=== PATIENT | female | born 1990 | race Caucasian/White ===

== ENCOUNTER → 2016-05-28 | Outpatient (CLI) | payer OTHER ==
[~2016-05-28] MED LIST: BCPILLS PO; PRENTAB26 PO; RTL20 PO
== END | disposition home or self-care (01) ==
LOC: C.PAPS 13:37
PROVIDERS: ATTEND Obstetrics & Gynecology
DX: Z01.419 Encounter for gynecological examination (general) (routine) without abnormal findings (principal)

== ENCOUNTER → 2017-07-15 | Outpatient (CLI) | payer OTHER | END | disposition home or self-care (01) | LOC: C.LABPVFM 07:40 | PROVIDERS: ATTEND Obstetrics & Gynecology | DX: E28.2 Polycystic ovarian syndrome (principal) ==

== ENCOUNTER → 2017-08-04 | Outpatient (CLI) | payer OTHER ==
[2017-08-05 06:41] LABS: HEMOGLOBIN A1C 5.1 % (4.5-5.6)
== END | disposition home or self-care (01) ==
LOC: C.LABPVFM 14:41
PROVIDERS: ATTEND Nurse Practitioner Family
DX: R73.01 Impaired fasting glucose (principal); R53.83 Other fatigue

== ENCOUNTER → 2017-12-08 | Outpatient (CLI) | payer OTHER ==
[~2017-12-08] MED LIST changes: -BCPILLS PO; +BUSP-8 PO; +CITA20TA9 PO; -PRENTAB26 PO; -RTL20 PO
[2017-12-08 14:00] LABS: BLOOD UREA NITROGEN 6 mg/dl (7-18); CALCIUM 8.8 mg/dl (8.5-10.1); CARBON DIOXIDE 23 mmol/L (21-32); CREATININE 0.93 mg/dl (0.60-1.20); GLUCOSE 101 mg/dl (70-99); SODIUM 139 mmol/L (136-145)
== END | disposition home or self-care (01) ==
LOC: C.LABPVFM 09:04
PROVIDERS: ATTEND Nurse Practitioner Family
DX: R53.83 Other fatigue (principal); R51 Headache; E87.6 Hypokalemia; R11.0 Nausea

== ENCOUNTER 2025-04-04 12:12 | Observation (INO) ==
--- NOTE | 2025-04-04 12:54 | Emergency Department Note ---
Impression & Plan Gastroenteritis, Enterovirus infection, Intractable vomiting, Hypokalemia ED Provider Note NAME: ROSITA WAGGONER AGE: 34 SEX: F : 1990 ARRIVES VIA: Ambulance INFORMANT: The patient herself and her mother. ED PROVIDER(S): Sakina Martinez PA-C, [Santana Trevino MD] CHIEF COMPLAINT: Illness, dehydration HISTORY OF PRESENTING ILLNESS: The patient is a 34-year-old female who presents to the emergency department via EMS from her primary care provider's office in a wheelchair reporting GI virus for 6 days. Her symptoms began Wednesday with nausea, vomiting, and watery diarrhea. 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 She reports intermittent fever and not being able to keep anything down since then. She was seen here in the ER 2 days ago and diagnosed with enterovirus. Since then she has still had episodes of vomiting and diarrhea. She is not able to eat or drink. She had a primary care appointment today and was referred here for admission for rehydration and management of her symptoms. Primary care provider reports patient is tachycardic, diaphoretic, and crying. She has not been able to eat anything for many days. The patient was given Zofran via EMS upon arrival. Patient denies chest pain, shortness of breath, cough, recent travel, or eating anything out of the ordinary. REVIEW OF SYSTEMS: See HPI for pertinent positives and pertinent negatives. ALLERGIES: Latex, ciprofloxacin, quinolones MEDICATIONS: See below PAST MEDICAL HISTORY: See below PHYSICAL EXAM: VITALS: Vitals are noted on the nurses note and reviewed by myself. Vital signs stable. GENERAL: 34-year-old female, in no acute distress, nondiaphoretic, well- developed well-nourished. SKIN: Capillary refill less than 2 seconds. No rash. HEENT: Normocephalic. PERRLA. EOMI. Nares patent. Mucous membranes moist. Neck is supple without nuchal rigidity. HEART: Regular rate and rhythm without murmurs gallops or rubs. LUNGS: CTA BL without wheezes, rales or rhonchi. No retractions or accessory muscle use. ABDOMEN: Positive BS x 4. Soft, diffuse abdominal tenderness, without masses or organomegaly. No guarding or rebound tenderness. MUSCULOSKELETAL: No gross musculoskeletal defects. NEURO: Patient was alert and oriented to person place and time. No focal neurological deficits. DIFFERENTIAL DIAGNOSIS: Gastroenteritis, foodborne illness, viral infection, appendicitis, dehydration, small bowel obstruction, pancreatitis, kidney stone, electrolyte abnormality, dehydration, among others. ED COURSE AND MEDICAL DECISION MAKING: MEDICATIONS GIVEN: 1 L normal saline, Tylenol 1000 mg IV, Zofran 4 mg IV, potassium 10 meq 10, potassium chloride 2 bags IV, Reglan 10 mg IV INTERPRETATION OF LABS: I interpreted the labs with full lab results as below in the labsection of this note. Pertinent lab results discussed in the MDM section below. INTERPRETATION OF IMAGING: I informally interpreted the patient's CT abdomen and pelvis which does not show evidence of obvious bowel obstruction, nephrolithiasis, or acute cholecystitis and reviewed the formal report below. CONSULTATION: On-call hospitalist - Presented the patient to the provider. Patient is still having episodes of vomiting with Zofran and Reglan. Hypokalemia treated here in the ER. She was not able to provide a stool sample. Patient's symptoms have not improved. I do believe she would benefit from admission. They agreed to evaluate the patient for admission and further management. MDM SUMMARY: I evaluated the 34-year-old female who presents to the emergency department due to enterovirus and possible GI virus referred by PCP for intractable vomiting and dehydration. See HPI and PE above. Patient symptoms have been persistent for 6 days. Initially tachycardic with a rate of 110. She is afebrile. Initially 1 L normal saline, Tylenol, and Zofran given for symptom management. Labs obtained showing no leukocytosis. Hemodynamically stable. Hypokalemia 3.2. This was repleted. Magnesium 1.8. No other electrolyte abnormality. No SHAHAB. Normal LFTs. Lipase 11. Urinalysis obtained showing 2+ ketones. No blood or concern for infection. Patient was not able to provide a stool sample here in the ER however has had many episodes of watery diarrhea for the past 6 days and GI virus is likely. CT abdomen and pelvis obtained to rule out other causes which shows no acute findings. All laboratory and imaging results reviewed the patient. On reevaluation the patient is still having multiple episodes of vomiting. Reglan was given. I had a long discussion with the patient regarding her symptoms and minimal improvement here in the ER. I do believe she would benefit from admission for hydration and further management. She is agreeable and all questions answered. Consultation with on-call hospitalist can be seen in detail above. They agreed to evaluate the patient for admission. See their note for further management. Patient was admitted in stable condition. DIAGNOSIS: Gastroenteritis, enterovirus infection, intractable vomiting, hypokalemia The chart was completed utilizing [employer] Speech voice recognition software. Grammatical errors, random word insertions, pronoun errors, and incomplete sentences are an occasional consequence of this system due to software limitations, ambient noise, and hardware issues. Any formal questions or concerns about the content, text, or information contained within the body of this dictation should be directly addressed to the provider for clarification. TREATMENT PLAN/DISCHARGE INSTRUCTIONS: The patient was admitted to medicine. See their note for further management and workup. 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 Hypertrophy of both inferior nasal turbinates Nasal septal deviation Refractory obstruction of nasal airway Rectal pain Proctitis Hemorrhoids Pilar cyst of scalp Constipation GERD (gastroesophageal reflux disease) ADD (attention deficit disorder) Medical marijuana use Severe anxiety Status post placement of implantable loop recorder Abdominal pain PSVT (paroxysmal supraventricular tachycardia) Raynauds phenomenon Fatigue Arthralgia Myalgia Racing heart beat Dyspnea on exertion Panic attacks Christine infection of genital region Acute dysfunction of eustachian tube Pelvic pain Flank pain Acne (Chronic) Attention deficit hyperactivity disorder (Acute) Classic migraine with aura (Acute) Dyspareunia (Acute) Eczema (Acute) Endometriosis Enlarged tonsils and adenoids (Acute) Impaired fasting glucose (Acute) Insomnia (Acute) Irritable bowel syndrome (Acute) Nevus (Acute) Obesity (Acute) Ovarian cyst (Acute) Parasomnia (Acute) Postcoital bleeding (Acute) Sciatica (Acute) Sleep disturbances (Acute) Sleep walking (Acute) Trigger point of right shoulder region (Acute) Vitamin D deficiency (Acute) Witnessed apneic spells (Acute) Depression Medical History Polycystic ovarian syndrome Hx of fracture of nose x3 "Can only breath out of one side of my nose" History of kidney stones no surgery required Raynauds phenomenon History of PSVT (paroxysmal supraventricular tachycardia) Per 06/2023 EP note- no significant SVT noted since loop recorder implanted Implantable loop recorder present [facility]>implanted d/t syncopal episode and irregular heartbeats Hx of syncope history of in 2020- no recent problems IBS (irritable bowel syndrome) Dyspnea on exertion Globus sensation GERD (gastroesophageal reflux disease) Depression with anxiety Hx of migraines ADHD (attention deficit hyperactivity disorder) ADD (attention deficit disorder) Surgical History History of removal of cyst (06/13/24) excision of multiple (10) pilar cysts of scalp: Dr. Thao [place] teeth removed Adverse effect of anesthesia r/t raynauds - "I get really cooled when getting anesthesia and just ask for extra blankets" as per patient PONV (postoperative nausea and vomiting) History of esophagogastroduodenoscopy (EGD) Hx of colonoscopy Hx of hysterectomy Hx of laparoscopy endometriosis Family History Grandmother (Maternal) Ovarian cancer Colorectal cancer Mother Ovarian cancer Other No family history of adverse response to anesthesia Denies family history of Prostate cancer Myocardial infarction Breast cancer Social History Smoking Status: Never smoker Tobacco Type: Cigarettes Age Started Using Tobacco: 19; Age Quit Using Tobacco: 29; packs per day: 1; Second Hand Exposure: No; Do You Dip or Chew Tobacco: No; Hx Alcohol Use: No Hx Substance Use: Yes (medical marijuana - gummies) Prescribed Medications: Marijuana Last Used Substance: Days (ago) Preferred Language: Brazilian Communication Ability: Effective Visual Impairment: Limited Hearing Ability: Normal Member Services Representative Required: No Beliefs That Will Affect Care: None marital status: Current Living Situation: Parent Current Living Situation Comment: lives "part-time" with parents and "part- time" with boyfriend current occupational status: employed 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 How many Children do You have: 1 Feels Safe at Home: Yes Childhood Exposure to Second-Hand Smoke: No Diet: regular caffeine: Yes during the past year weight has: remained stable Dental Care, Regularly: Yes Physical Activity Frequency: Daily Seatbelt Use: always Sunscreen Use: Yes Do you think of yourself as: straight/heterosexual Sexual Activity: has been sexually active within the last 12 months Gender Identity: Female Assistive Devices: None Allergies Allergies Allergy/AdvReac Type Severity Reaction Status Date / Time latex Allergy Mild Rash Verified 04/04/25 11:01 ciprofloxacin [From Cipro] AdvReac Severe Anaphylaxis Verified 04/04/25 11:01 Quinolones AdvReac Severe Anaphylaxis Verified 04/04/25 11:01 Home Meds Home Medications Medication Instructions Recorded Confirmed fluticasone propionate 50 1 spray intranasal BID PRN 02/11/24 04/04/25 mcg/actuation nasal Allergies spray,suspension (Flonase Allergy Relief) tirzepatide (weight loss) 2.5 2.5 mg subcut WK 04/04/25 04/04/25 mg/0.5 mL subcutaneous pen injector (Zepbound) Previous Rx's Medication Instructions Recorded venlafaxine 75 mg capsule,extended 75 mg PO QAM #90 caps 06/16/24 release 24 hr (Effexor XR) atomoxetine 80 mg capsule 80 mg PO DAILY #90 caps 01/10/25 ondansetron HCl 4 mg tablet 4 mg PO DAILY PRN nausea and 03/13/25 vomiting #30 tabs Results & Data (ED) Vital Signs Vital Signs - 24 hr 04/04/25 17:00 Pulse Rate [Apical] 69 Pulse Rhythm [Apical] Regular Pulse Strength [Apical] Normal Respiratory Rate 18 Respiratory Effort / Characteristics Non-Labored Spontaneous Respiratory Depth Normal Respiratory Pattern Regular Blood Pressure [Right Arm] 124/62 Blood Pressure Mean [Right Arm] 82 Blood Pressure Position [Right Arm] Semi-fowlers Pulse Oximetry 98 Oxygen Delivery Method Room Air Laboratory Data 04/05/25 06:24 04/05/25 06:24 Lab Results 04/04/25 04/04/25 04/04/25 Range/Units 12:58 15:09 15:10 WBC 6.48 (4.8-10.8) K/ul RBC 5.41 H (4.20-5.40) M/uL Hgb 16.3 H (12.0-16.0) g/dL Hct 46.6 (37.0-47.0) % MCV 86.1 (80.0-100.0) fL MCH 30.1 (25.0-34.0) pg MCHC 35.0 (32.0-36.0) g/dL RDW Std Deviation 38.0 (36.4-46.3) fL RDW Coeff of Melanie 12.1 (11.5-14.5) % Plt Count 249 (130-400) K/uL MPV 9.9 (9.4-12.4) fL Immature Gran % (Auto) 0.2 % Neut % (Auto) 58.8 % Lymph % (Auto) 32.1 % [place] % (Auto) 5.4 % Eos % (Auto) 3.2 % Baso % (Auto) 0.3 % Neut # (Auto) 3.81 (1.40-6.50) K/uL Lymph # (Auto) 2.08 (1.20-3.40) K/uL [place] # (Auto) 0.35 (0.11-0.59) K/uL Eos # (Auto) 0.21 (0.00-0.50) K/uL Baso # (Auto) 0.02 (0.00-0.20) K/uL Immature Gran # (Auto) 0.01 (0.01-0.20) K/uL Sodium 140 (136-145) mmol/L Potassium 3.2 L (3.5-5.1) mmol/L Chloride 106 (98-107) mmol/L Carbon Dioxide 25 (21-32) mmol/L Anion Gap 9 (3-11) BUN 4 L (6-23) mg/dl Creatinine 0.72 (0.6-1.2) mg/dl Est Cr Clr Drug Dosing Not Reportable eGFR 113.15 BUN/Creatinine Ratio 5.6 L (10-20) Glucose 78 (70-99(Fasting)) mg/dl Calcium 9.5 (8.6-10.3) mg/dl Magnesium 2.0 (1.7-2.4) mg/dl Total Bilirubin 1.1 H (0.2-1.0) mg/dl AST 36 (13-39) U/L ALT 38 (7-52) U/L Alkaline Phosphatase 47 (34-104) U/L Total Protein 8.0 (6.0-8.3) gm/dl Albumin 4.8 (3.4-5.0) gm/dl Globulin 3.2 (2.5-4.0) gm/dl Albumin/Globulin Ratio 1.5 (0.9-2) Lipase 11 (11-82) U/L Urine Color Yellow Urine Appearance Cloudy A (Clear) Urine pH 6.0 (4.5-7.5) Ur Specific [place] 1.012 (1.000-1.030) Urine Protein Negative (Negative) Urine Glucose (UA) Negative (Negative) Urine Ketones 2+ H (Negative) Urine Blood Negative (Negative) Urine Nitrite Negative (Negative) Urine Bilirubin Negative (Negative) Urine Urobilinogen Negative (Negative) Ur Leukocyte Esterase Negative (Negative) Urine WBC (Auto) 0-5 (0-5) /hpf Urine RBC (Auto) 6-10 H (0-2) /hpf U Hyaline Cast (Auto) 0-2 (0-2) /lpf U Epithel Cells (Auto) 6-10 H (0-2) /hpf Urine Bacteria (Auto) 3+ H (None Seen) POC Ur Test Cancelled Urine Comment Administered Medications Acetaminophen (Acetaminophen 325 Mg Tab) 650 mg PO Q4H PRN PRN Reason: pain/fever Stop: 05/04/25 20:53 Last Admin: 04/05/25 05:22 Dose: 650 mg Documented By: DELONTE Atomoxetine HCl (Atomoxetine Hcl 40 Mg Capsule) 80 mg PO DAILY [facility] Stop: 05/05/25 08:59 Last Admin: 04/05/25 09:05 Dose: 80 mg Documented By: RAMU Sodium Chloride (Nss) 1,000 mls @ 125 mls/hr IV .Q8H JENNIFER Stop: 04/07/25 20:53 Last Admin: 04/05/25 14:13 Dose: 125 mls/hr Documented By: Infusion: 04/05/25 13:19 Dose: Infused Documented By: Admin: 04/05/25 05:19 Dose: 125 mls/hr Documented By: Infusion: 04/05/25 05:06 Dose: Infused Documented By: Admin: 04/04/25 21:06 Dose: 125 mls/hr Documented By: DELONTE Ondansetron HCl (Ondansetron Inj 2 Mg/Ml 2 Ml Vial) 4 mg IV Q6H PRN PRN Reason: Nausea Stop: 05/04/25 20:53 Last Admin: 04/05/25 11:53 Dose: 4 mg Documented By: Admin: 04/05/25 05:22 Dose: 4 mg Documented By: Admin: 04/04/25 22:26 Dose: 4 mg Documented By: DELONTE Venlafaxine HCl (Venlafaxine Hcl Xr 75 Mg Capxr) 75 mg PO QAM JENNIFER Stop: 05/05/25 08:59 Last Admin: 04/05/25 09:05 Dose: 75 mg Documented By: RAMU Discontinued Medications Hydroxyzine HCl (Hydroxyzine Hcl 25 Mg Tab) 25 mg PO NOW STA Stop: 04/04/25 21:47 Last Admin: 04/04/25 22:31 Dose: 25 mg Documented By: DELONTE Sodium Chloride (Nss) 1,000 mls @ 999 mls/hr IV .Q1H1M ONE Stop: 04/04/25 13:47 Last Infusion: 04/04/25 15:40 Dose: Infused Documented By: sabine Admin: 04/04/25 13:07 Dose: 999 mls/hr Documented By: sabine Acetaminophen (Ofirmev) 1,000 mg in 100 mls @ 400 mls/hr IV NOW STA Stop: 04/04/25 13:01 Last Infusion: 04/04/25 13:25 Dose: Infused Documented By: sabine Admin: 04/04/25 13:07 Dose: 400 mls/hr Documented By: sabine Potassium Chloride (K Chao / Wtr) 10 meq in 100 mls @ 100 mls/hr IV ONE ONE Stop: 04/04/25 14:55 Last Infusion: 04/04/25 15:39 Dose: Infused Documented By: sabine Admin: 04/04/25 14:09 Dose: 100 mls/hr Documented By: sabine Magnesium Sulfate/Dextrose (Magnesium Sulfate / D5w) 1 gm in 100 mls @ 50 mls/hr IV ONE ONE Stop: 04/05/25 11:42 Last Infusion: 04/05/25 12:51 Dose: Infused Documented By: Admin: 04/05/25 10:32 Dose: 50 mls/hr Documented By: RAMU Acetaminophen (Ofirmev) 1,000 mg in 100 mls @ 400 mls/hr IV NOW STA Stop: 04/05/25 11:58 Last Infusion: 04/05/25 12:11 Dose: Infused Documented By: Admin: 04/05/25 11:54 Dose: 400 mls/hr Documented By: RAMU Ioversol (Optiray 320 100ml) 90 ml IV ONCE ONE Stop: 04/04/25 15:19 Last Admin: 04/04/25 15:18 Dose: 90 ml Documented By: SARAI Metoclopramide HCl (Metoclopramide Hcl Inj 5 Mg/Ml 2 Ml Vial) 10 mg IV NOW STA Stop: 04/04/25 16:14 Last Admin: 04/04/25 16:34 Dose: 10 mg Documented By: christopher Ondansetron HCl (Ondansetron Inj 2 Mg/Ml 2 Ml Vial) 4 mg IV NOW STA Stop: 04/04/25 12:48 Last Admin: 04/04/25 13:07 Dose: 4 mg Documented By: sabine Potassium Chloride (Potassium Chloride 10 Meq Tabcr) 10 meq PO NOW STA Stop: 04/04/25 13:57 Last Admin: 04/04/25 14:08 Dose: 10 meq Documented By: sabine Potassium Chloride (Potassium Chloride Crtab 20 Meq Tabcr) 40 meq PO NOW STA Stop: 04/05/25 09:44 Last Admin: 04/05/25 10:09 Dose: 40 meq Documented By: RAMU Discharge Plan Visit Data Chief Complaint: Illness Stated Complaint: ILLNESS ED Provider: Santana Trevino ED Midlevel Provider: Sakina Martinez Discharge Problem: Gastroenteritis, Enterovirus infection, Intractable vomiting, Hypokalemia Patient Disposition: Admitted As Inpatient Condition: Good Discharge Instructions Interventions: ED Discharge Assessment Last Done: 04/04/25 20:01
[2025-04-04] MEDS: ONDANSETRON INJ 2 MG/ML 2 ML VIAL IV STA (13:07)
[2025-04-04] MEDS: SODIUM CHLORIDE 0.9% 1,000 ML IV ONE (13:07)
[2025-04-04] MEDS: ACETAMINOPHEN 1,000 MG/100 ML VIAL IV STA (13:07)
[2025-04-04 13:34] LABS: Hematocrit (blood only) 46.6 % (37.0-47.0); Hemoglobin 16.3 g/dL (12.0-16.0); Immature Granulocytes # (auto) 0.01 K/uL (0.01-0.20); Immature Granulocytes % (auto) 0.2 %; Mean Corpuscular Hemoglobin 30.1 pg (25.0-34.0); Mean Corpuscular Volume 86.1 fL (80.0-100.0); Platelet Count 249 K/uL (130-400); RDW Standard Deviation 38.0 fL (36.4-46.3); Red Blood Count 5.41 M/uL (4.20-5.40); White Blood Count 6.48 K/ul (4.8-10.8)
[2025-04-04 13:52] LABS: Alanine Aminotransferase 38 U/L (7-52); Albumin Globulin Ratio 1.5 (0.9-2); Albumin Level 4.8 gm/dl (3.4-5.0); Alkaline Phosphatase 47 U/L (34-104); Anion Gap 9 (3-11); Bilirubin,Total 1.1 mg/dl (0.2-1.0); Blood Urea Nitrogen 4 mg/dl (6-23); Calcium 9.5 mg/dl (8.6-10.3); Carbon Dioxide 25 mmol/L (21-32); Chloride 106 mmol/L (98-107); Globulin 3.2 gm/dl (2.5-4.0); Glucose 78 mg/dl (70-99(Fasting)); Lipase 11 U/L (11-82); Potassium 3.2 mmol/L (3.5-5.1); Sodium 140 mmol/L (136-145); Total Protein 8.0 gm/dl (6.0-8.3)
[2025-04-04] MEDS: POTASSIUM CHLORIDE 10 MEQ TABCR PO STA (14:08)
[2025-04-04] MEDS: POTASSIUM CHLORIDE / WTR 10 MEQ/100 ML PLCT IV ONE (14:09)
[2025-04-04 15:01] LABS: Magnesium 2.0 mg/dl (1.7-2.4)
[2025-04-04] MEDS: OPTIRAY 320 100ml IV ONE (15:18)
[2025-04-04 15:27] LABS: Appearance Urine Cloudy (Clear); Bacteria Urine Automated 3+ (None Seen); Cast Urine Automated 0-2 /lpf (0-2); Glucose Urine UA Negative (Negative); WBC Urine Automated 0-5 /hpf (0-5)
--- NOTE | 2025-04-04 15:36 | CT Scan Report ---
CT SCAN OF THE ABDOMEN AND PELVIS WITH IV CONTRAST CLINICAL HISTORY: Generalized abdominal pain. Nausea and vomiting. Diarrhea. COMPARISON STUDY: Abdominal CT dated 04/02/2025. TECHNIQUE: Following the IV administration of 90 cc of Optiray 320, CT scan of the abdomen and pelvi s is performed from the lung bases to the proximal femora. Images are reviewed in the axial, sagittal , and coronal planes. IV contrast was administered without complication. A dose lowering technique wa s utilized adhering to the principles of ALARA. CT DOSE: 1328.21 mGy.cm FINDINGS: Lung bases: The heart is normal in size and without pericardial effusion. The lung bases are clear. Liver: The contrast-enhanced liver is normal in size, contour, and attenuation. There is no intrahepa tic biliary ductal dilatation. The hepatic veins and portal veins are patent. Gallbladder: Unremarkable. Spleen: Normal in size and attenuation. Pancreas: Unremarkable. Adrenal glands: Unremarkable. Kidneys: The contrast enhanced kidneys are normal in size and without hydronephrosis. The kidneys enh ance symmetrically. A 3.2 cm cyst is seen on the right. Abdominal vasculature: The abdominal aorta is normal in course and caliber. Bowel: There is no bowel obstruction. The appendix is well-visualized and normal. Peritoneum: There is no intraperitoneal free air or abdominal ascites. Lymphadenopathy: None. Pelvic viscera: The bladder is decompressed and grossly unremarkable. The uterus is surgically absent . Follicles are noted in the left ovary. There is a small volume of free fluid in the cul-de-sac. Skeletal structures: No lytic or blastic lesions are seen. Mild sclerotic change in seen in the sacro iliac joints. IMPRESSION: 1. No acute infectious or inflammatory findings are identified in the abdomen or pelvis. 2. Free fluid in the cul-de-sac is nonspecific and likely physiologic. 3. Additional findings as above. ACT 112: Negative or not required by law. Electronically signed by: Sonu Ramirez M.D. 04/04/2025 3:34 PM
[2025-04-04] MEDS: METOCLOPRAMIDE HCL INJ 5 MG/ML 2 ML VIAL IV STA (16:34)
--- NOTE | 2025-04-04 17:35 | History & Physical Report ---
Date of Service April 04, 2025 Assessment & Plan (1) Gastroenteritis: (2) Enterovirus infection: (3) Viral gastroenteritis: Plan This is a 34 year old female with a PMH of ADHD, mood disorder - coming in with nausea/vomiting/diarrhea. Viral Gastroenteritis - patient coming in with +enterovirus on 04/02; but now has nausea/vomiting/diarrhea - IV fluids ordered - clear liquid diet ordered - PRN Zofran ordered - check GI pathogen panel, C diff ADHD - cont home medications Mood Disorder - cont home medications History of Present Illness Chief Complaint: Nausea/vomiting/diarrhea Primary Care Provider: Staci Parikh MD This is a 34 year old female with a PMH of ADHD, mood disorder - coming in with nausea/vomiting/diarrhea. States she's had this for a few days. on 04/02; tested positive for enterovirus. Now she cannot keep anything down. On arrival here, labs drawn and suggestive of hypokalemia; elevated Hgb likely secondary to dehydration. Gave fluids, IV Zofran in the ER and attempted to feed her, but she still could not keep anything down. No diarrhea in the ER, but patient states she was having this at home. Allergies Allergy/AdvReac Type Severity Reaction Status Date / Time latex Allergy Mild Rash Verified 04/04/25 11:01 ciprofloxacin [From Cipro] AdvReac Severe Anaphylaxis Verified 04/04/25 11:01 Quinolones AdvReac Severe Anaphylaxis Verified 04/04/25 11:01 Home Medications Medication Instructions Recorded Confirmed Type fluticasone propionate 50 1 spray intranasal BID PRN 02/11/24 04/04/25 History mcg/actuation nasal Allergies spray,suspension (Flonase Allergy Relief) venlafaxine 75 mg capsule,extended 75 mg PO QAM #90 caps 06/16/24 04/04/25 Rx release 24 hr (Effexor XR) atomoxetine 80 mg capsule 80 mg PO DAILY #90 caps 01/10/25 04/04/25 Rx ondansetron HCl 4 mg tablet 4 mg PO DAILY PRN nausea and 03/13/25 04/04/25 Rx vomiting #30 tabs tirzepatide (weight loss) 2.5 2.5 mg subcut WK 04/04/25 04/04/25 History mg/0.5 mL subcutaneous pen injector (Zepbound) Past Med/Surg History Problem List (Updated 04/04/25 @ 18:18 by Phoenix Almendarez DO) Gastroenteritis Encounter for examination following treatment at hospital Enterovirus infection (Acute) Enterovirus disease of central nervous system Rhinovirus (Acute) Viral gastroenteritis (Acute) Viral gastroenteritis Unable to lose weight Delayed wound healing History of bruising easily Abnormal weight gain Multiple complaints Urinary symptom or sign Mood disorder due to a general medical condition Anisa bullosa Hypertrophy of both inferior nasal turbinates Nasal septal deviation Refractory obstruction of nasal airway Rectal pain Proctitis Hemorrhoids Pilar cyst of scalp Constipation GERD (gastroesophageal reflux disease) ADD (attention deficit disorder) Medical marijuana use Severe anxiety Status post placement of implantable loop recorder Abdominal pain PSVT (paroxysmal supraventricular tachycardia) Raynauds phenomenon Fatigue Arthralgia Myalgia Racing heart beat Dyspnea on exertion Panic attacks Christine infection of genital region Acute dysfunction of eustachian tube Pelvic pain Flank pain Acne (Chronic) Attention deficit hyperactivity disorder (Acute) Classic migraine with aura (Acute) Dyspareunia (Acute) Eczema (Acute) Endometriosis Enlarged tonsils and adenoids (Acute) Impaired fasting glucose (Acute) Insomnia (Acute) Irritable bowel syndrome (Acute) Nevus (Acute) Obesity (Acute) Ovarian cyst (Acute) Parasomnia (Acute) Postcoital bleeding (Acute) Sciatica (Acute) Sleep disturbances (Acute) Sleep walking (Acute) Trigger point of right shoulder region (Acute) Vitamin D deficiency (Acute) Witnessed apneic spells (Acute) Depression Medical History Polycystic ovarian syndrome Hx of fracture of nose History of kidney stones Raynauds phenomenon History of PSVT (paroxysmal supraventricular tachycardia) Implantable loop recorder present Hx of syncope IBS (irritable bowel syndrome) Dyspnea on exertion Globus sensation GERD (gastroesophageal reflux disease) Depression with anxiety Hx of migraines ADHD (attention deficit hyperactivity disorder) ADD (attention deficit disorder) Surgical History History of removal of cyst (06/13/24) [place] teeth removed Adverse effect of anesthesia PONV (postoperative nausea and vomiting) History of esophagogastroduodenoscopy (EGD) Hx of colonoscopy Hx of hysterectomy Hx of laparoscopy Family History Grandmother (Maternal) Ovarian cancer Colorectal cancer Mother Ovarian cancer Other No family history of adverse response to anesthesia Denies family history of Prostate cancer Myocardial infarction Breast cancer Social History (Updated 04/04/25 @ 11:06 by Leonarda Gates LPN) Smoking Status: Never smoker Tobacco Type: Cigarettes Age Started Using Tobacco: 19; Age Quit Using Tobacco: 29; packs per day: 1; Second Hand Exposure: No; Do You Dip or Chew Tobacco: No; Hx Alcohol Use: Yes Alcohol type: beer, wine and hard liquor Alcohol Intake Frequency: Monthly or Less Hx Substance Use: No Preferred Language: Khmer Communication Ability: Effective Visual Impairment: Limited Hearing Ability: Normal Clinical Nurse Specialist Required: No Beliefs That Will Affect Care: None marital status: Current Living Situation: Family Current Living Situation Comment: mother/father/son current occupational status: employed current occupation: [employer] Sales Representative How many Children do You have: 1 Feels Safe at Home: Yes Childhood Exposure to Second-Hand Smoke: No Diet: regular caffeine: Yes during the past year weight has: remained stable Dental Care, Regularly: Yes Physical Activity Frequency: Daily Seatbelt Use: always Sunscreen Use: Yes Do you think of yourself as: straight/heterosexual Sexual Activity: has been sexually active within the last 12 months Gender Identity: Female Assistive Devices: Contacts and Glasses Review of Systems Review of Systems: Constitutional: No Weight Change, No Fever, No Chills, No Night Sweats, +fatigue No Malaise ENT/Mouth: No Hearing Changes, No Ear Pain, No Nasal Congestion, No Sinus Pain, No Hoarseness, No sore throat, No Rhinorrhea, No Swallowing Difficulty Eyes: No Eye Pain, No Swelling, No Redness, No Foreign Body, No Discharge, No Vision Changes Cardiovascular: No Chest Pain, No SOB, No PND, No Dyspnea on Exertion, No Orthopnea, No Claudication, No Edema, No Palpitations Respiratory: No Cough, No Sputum, No Wheezing, No Smoke Exposure, No Dyspnea Gastrointestinal: +nausea, +vomiting, +diarrhea. No Constipation, No Pain, No Heartburn, No Anorexia, No Dysphagia, No Hematochezia, No Melena, No Flatulence, No Jaundice Genitourinary: No Dysmenorrhea, No DUB, No Dyspareunia, No Dysuria, No Urinary Frequency, No Hematuria, No Urinary Incontinence, No Urgency, No Flank Pain, No Urinary Flow Changes, No Hesitancy Musculoskeletal: No Arthralgias, No Myalgias, No Joint Swelling, No Joint Stiffness, No Back Pain, No Neck Pain, No Injury History Skin: No Skin Lesions, No Pruritis, No Hair Changes, No Breast/Skin Changes, No Nipple Discharge Neuro: No Weakness, No Numbness, No Paresthesias, No Loss of Consciousness, No Syncope, No Dizziness, No Headache, No Coordination Changes, No Recent Falls Psych: No Anxiety/Panic, No Depression, No Insomnia, No Personality Changes, No Delusions, No Rumination, No SI/HI/AH/VH, No Social Issues, No Memory Changes, No Violence/Abuse Hx., No Eating Concerns Heme/Lymph: No Bruising, No Bleeding, No Transfusions History, No Lymphadenopathy Endocrine: No Polyuria, No Polydipsia, No Temperature Intolerance Physical Exam Physical Exam: VITALS: Reviewed. WEIGHT/BMI reviewed. GEN: ill-appearing PSYCH: Good Judgment. AOx3. Normal memory, mood, and affect. HEENT -Head: NC/AT; -Eyes: PERRL, EOMI. No discharge or redn ess; -Ears: External ears are normal. Normal TMs. -Nose: Normal nares. -Mouth and throat: MMM. Normal gums, muc polina, palate,. Good dentition. NECK: Supple, with no masses. CV: RRR, no m/r/g. LUNGS: CTAB, no w/r/c. ABD: Soft, NT/ND, NBS, no masses or organomegaly. : N/A SKIN: Warm, well perfused. No skin rashes or abnormal lesions. MSK: No deformities, Normal gait. EXT: No clubbing, cyanosis, or edema. NEURO: Ambulating with no limitations. Normal muscle strength and tone. No focal deficits. Results & Data Results & Data Vital Signs (Past 12 Hours) Vital Signs Temp Pulse Pulse Resp BP BP Pulse Ox 04/04/25 15:00 74 18 129/84 99 04/04/25 13:26 70 04/04/25 13:15 68 18 116/87 96 04/04/25 12:16 37.1 C 89 20 133/84 97 O2 Del Method 04/04/25 15:00 Room Air 04/04/25 13:26 04/04/25 13:15 Room Air 04/04/25 12:16 Room Air Laboratory Results Laboratory Results WBC 6.48 K/ul (4.8-10.8) 04/04/25 12:58 RBC 5.41 M/uL (4.20-5.40) H 04/04/25 12:58 Hgb 16.3 g/dL (12.0-16.0) H 04/04/25 12:58 Hct 46.6 % (37.0-47.0) 04/04/25 12:58 MCV 86.1 fL (80.0-100.0) 04/04/25 12:58 MCH 30.1 pg (25.0-34.0) 04/04/25 12:58 MCHC 35.0 g/dL (32.0-36.0) 04/04/25 12:58 RDW Std Deviation 38.0 fL (36.4-46.3) 04/04/25 12:58 RDW Coeff of Melanie 12.1 % (11.5-14.5) 04/04/25 12:58 Plt Count 249 K/uL (130-400) 04/04/25 12:58 MPV 9.9 fL (9.4-12.4) 04/04/25 12:58 Immature Gran % (Auto) 0.2 % 04/04/25 12:58 Neut % (Auto) 58.8 % 04/04/25 12:58 Lymph % (Auto) 32.1 % 04/04/25 12:58 [place] % (Auto) 5.4 % 04/04/25 12:58 Eos % (Auto) 3.2 % 04/04/25 12:58 Baso % (Auto) 0.3 % 04/04/25 12:58 Neut # (Auto) 3.81 K/uL (1.40-6.50) 04/04/25 12:58 Lymph # (Auto) 2.08 K/uL (1.20-3.40) 04/04/25 12:58 [place] # (Auto) 0.35 K/uL (0.11-0.59) 04/04/25 12:58 Eos # (Auto) 0.21 K/uL (0.00-0.50) 04/04/25 12:58 Baso # (Auto) 0.02 K/uL (0.00-0.20) 04/04/25 12:58 Immature Gran # (Auto) 0.01 K/uL (0.01-0.20) 04/04/25 12:58 Sodium 140 mmol/L (136-145) 04/04/25 12:58 Potassium 3.2 mmol/L (3.5-5.1) L 04/04/25 12:58 Chloride 106 mmol/L (98-107) 04/04/25 12:58 Carbon Dioxide 25 mmol/L (21-32) 04/04/25 12:58 Anion Gap 9 (3-11) 04/04/25 12:58 BUN 4 mg/dl (6-23) L 04/04/25 12:58 Creatinine 0.72 mg/dl (0.6-1.2) 04/04/25 12:58 Est Cr Clr Drug Dosing Not Reportable 04/04/25 12:58 eGFR 113.15 04/04/25 12:58 BUN/Creatinine Ratio 5.6 (10-20) L 04/04/25 12:58 Glucose 78 mg/dl (70-99(Fasting)) 04/04/25 12:58 Calcium 9.5 mg/dl (8.6-10.3) 04/04/25 12:58 Magnesium 2.0 mg/dl (1.7-2.4) 04/04/25 12:58 Total Bilirubin 1.1 mg/dl (0.2-1.0) H 04/04/25 12:58 AST 36 U/L (13-39) 04/04/25 12:58 ALT 38 U/L (7-52) 04/04/25 12:58 Alkaline Phosphatase 47 U/L (34-104) 04/04/25 12:58 Total Protein 8.0 gm/dl (6.0-8.3) 04/04/25 12:58 Albumin 4.8 gm/dl (3.4-5.0) 04/04/25 12:58 Globulin 3.2 gm/dl (2.5-4.0) 04/04/25 12:58 Albumin/Globulin Ratio 1.5 (0.9-2) 04/04/25 12:58 Lipase 11 U/L (11-82) 04/04/25 12:58 Urine Color Yellow 04/04/25 15:10 Urine Appearance Cloudy (Clear) A 04/04/25 15:10 Urine pH 6.0 (4.5-7.5) 04/04/25 15:10 Ur Specific [place] 1.012 (1.000-1.030) 04/04/25 15:10 Urine Protein Negative (Negative) 04/04/25 15:10 Urine Glucose (UA) Negative (Negative) 04/04/25 15:10 Urine Ketones 2+ (Negative) H 04/04/25 15:10 Urine Blood Negative (Negative) 04/04/25 15:10 Urine Nitrite Negative (Negative) 04/04/25 15:10 Urine Bilirubin Negative (Negative) 04/04/25 15:10 Urine Urobilinogen Negative (Negative) 04/04/25 15:10 Ur Leukocyte Esterase Negative (Negative) 04/04/25 15:10 Urine WBC (Auto) 0-5 /hpf (0-5) 04/04/25 15:10 Urine RBC (Auto) 6-10 /hpf (0-2) H 04/04/25 15:10 U Hyaline Cast (Auto) 0-2 /lpf (0-2) 04/04/25 15:10 U Epithel Cells (Auto) 6-10 /hpf (0-2) H 04/04/25 15:10 Urine Bacteria (Auto) 3+ (None Seen) H 04/04/25 15:10 POC Ur Test Cancelled 04/04/25 15:09 Urine Comment 04/04/25 15:10 Impressions Abdomen/Pelvis CT 04/04/25 14:54 CT SCAN OF THE ABDOMEN AND PELVIS WITH IV CONTRAST CLINICAL HISTORY: Generalized abdominal pain. Nausea and vomiting. Diarrhea. COMPARISON STUDY: Abdominal CT dated 04/02/2025. TECHNIQUE: Following the IV administration of 90 cc of Optiray 320, CT scan of the abdomen and pelvis is performed from the lung bases to the proximal femora. Images are reviewed in the axial, sagittal, and coronal planes. IV contrast was administered without complication. A dose lowering technique was utilized adhering to the principles of ALARA. CT DOSE: 1328.21 mGy.cm FINDINGS: Lung bases: The heart is normal in size and without pericardial effusion. The lung bases are clear. Liver: The contrast-enhanced liver is normal in size, contour, and attenuation. There is no intrahepatic biliary ductal dilatation. The hepatic veins and portal veins are patent. Gallbladder: Unremarkable. Spleen: Normal in size and attenuation. Pancreas: Unremarkable. Adrenal glands: Unremarkable. Kidneys: The contrast enhanced kidneys are normal in size and without hydronephrosis. The kidneys enhance symmetrically. A 3.2 cm cyst is seen on the right. Abdominal vasculature: The abdominal aorta is normal in course and caliber. Bowel: There is no bowel obstruction. The appendix is well-visualized and normal. Peritoneum: There is no intraperitoneal free air or abdominal ascites. Lymphadenopathy: None. Pelvic viscera: The bladder is decompressed and grossly unremarkable. The uterus is surgically absent. Follicles are noted in the left ovary. There is a small volume of free fluid in the cul-de-sac. Skeletal structures: No lytic or blastic lesions are seen. Mild sclerotic change in seen in the sacroiliac joints. IMPRESSION: 1. No acute infectious or inflammatory findings are identified in the abdomen or pelvis. 2. Free fluid in the cul-de-sac is nonspecific and likely physiologic. 3. Additional findings as above. ACT 112: Negative or not required by law. Electronically signed by: Sonu Ramirez M.D. 04/04/2025 3:34 PM Code Status & VTE Plan VTE Prophylaxis Plan VTE Prophylaxis will be ordered: No Reason for no VTE drug order: Treatment not indicated PG Care Time/CCT Total # of Minutes Spent Total Time Spent with Patient: Total time spent is greater than 50% in coordination of care (as documented) at patient's floor/unit and/or counseling patient: Coding Level of Care Code 37329 INT INP/OBS CARE 2/55MIN Diagnoses Gastroenteritis K52.9 Enterovirus infection B34.1 Viral gastroenteritis A08.4
[2025-04-04] MEDS ORDERED: FLUTICASONE PROPIONATE NA SPR 16 GM BTL PRN (20:54)
[2025-04-04] MEDS ORDERED: ONDANSETRON 4 MG OD TAB PO PRN (21:00)
[2025-04-04] MEDS: SODIUM CHLORIDE 0.9% 1,000 ML IV SCH (21:06)
[2025-04-04] MEDS: ONDANSETRON INJ 2 MG/ML 2 ML VIAL IV PRN (22:26)
[2025-04-05] MEDS: ACETAMINOPHEN 325 MG TAB PO PRN (05:22)
[2025-04-05 07:20] LABS: Hematocrit (blood only) 38.2 % (37.0-47.0); Hemoglobin 13.4 g/dL (12.0-16.0); Mean Corpuscular Hemoglobin 30.7 pg (25.0-34.0); Mean Corpuscular Volume 87.4 fL (80.0-100.0); Platelet Count 204 K/uL (130-400); RDW Standard Deviation 38.9 fL (36.4-46.3); Red Blood Count 4.37 M/uL (4.20-5.40); White Blood Count 4.74 K/ul (4.8-10.8)
[2025-04-05 07:26] LABS: Anion Gap 7.0 (3-11); Blood Urea Nitrogen 5.0 mg/dl (6-23); Calcium 8.4 mg/dl (8.6-10.3); Carbon Dioxide 24.0 mmol/L (21-32); Chloride 110.0 mmol/L (98-107); Creatinine Clr Calc Pharmacy 134.7 ml/min; Glucose 84.0 mg/dl (70-99(Fasting)); Magnesium 1.8 mg/dl (1.7-2.4); Potassium 3.3 mmol/L (3.5-5.1); Sodium 141.0 mmol/L (136-145)
[2025-04-05 07:33] LABS: Immature Granulocytes # (auto) 0.01 K/uL (0.01-0.20); Immature Granulocytes % (auto) 0.2 %
[2025-04-05 08:17] LABS: Adenovirus F 40/41 PCR Not Detected (NotDetected); Campylobacter PCR Not Detected (NotDetected); Enteroaggregative E.coli(EAEC) Not Detected (NotDetected); Shiga-like Toxin E.coli (STEC) Not Detected (NotDetected); Vibrio species PCR Not Detected (NotDetected)
[2025-04-05] MEDS: VENLAFAXINE HCL XR 75 MG CAPXR PO SCH (09:05)
[2025-04-05] MEDS: ATOMOXETINE HCL 40 MG CAPSULE PO SCH (09:05)
[2025-04-05] MEDS: POTASSIUM CHLORIDE CRTAB 20 MEQ TABCR PO STA (10:09)
[2025-04-05] MEDS: MAGNESIUM SULFATE / D5W 1 GM/100 ML BAG IV ONE (10:32)
[2025-04-05] MEDS: ACETAMINOPHEN 1,000 MG/100 ML VIAL IV STA (11:54)
[2025-04-05] MEDS ORDERED: PROCHLORPERAZINE 10 MG in SYRINGE 8 ML IV PRN (15:11)
--- NOTE | 2025-04-05 15:12 | Hospitalist Progress Note ---
Date of Service April 05, 2025 Assessment & Plan (1) Gastroenteritis: (2) Enterovirus infection: (3) Hypokalemia: Plan This is a 34 year old female with a PMH of ADHD, obesity, binge eating disorder, anxiety disorder- coming in with nausea/vomiting/diarrhea and found to have ente rovirus/rhinovirus on a nasal BioFire. Stool PCR negative. She was already with chronic nausea for the last 5 weeks since starting Zepbound as an outpatient which is compounding her viral gastroenteritis. #Viral Gastroenteritis/enterovirus-tested positive for +enterovirus on 04/02, here with intractable nausea. Vomiting has resolved. CT abdomen/pelvis negative - Continue IV fluids - Continue Zofran as needed and add Compazine as needed - Advance diet to full liquids -Advised her to hold her home Zepbound due on 04/06 #Hypokalemia mildly low at 3.3, secondary to poor p.o. intake. Magnesium low normal at 1.8 - Replace with KCl 40 mEq p.o. x 1 and magnesium sulfate 1 g IV x 1 - Follow BMP and magnesium in the a.m. #ADHD - Continue home Strattera #Anxiety disorder/binge eating disorder - Continue home venlafaxine - Recommend holding Zepbound - If wants alternative weight loss medication due to chronic nausea, recommend Topamax as she also has a headache disorder #Obesity BMI 35.3-has lost 23 pounds in the last 5 weeks on Zepbound but has severe daily nausea - Consider Topamax as an outpatient #Headache-has a history of headaches which have improved since her hysterectomy. Currently has a headache - Give IV Tylenol x 1 DVT prophylaxis-add Lovenox SQ Disposition-continued stay on medical/surgical unit, possible discharge 04/06 if nausea improved Admission and Anticipated Discharge Date Admission Date: April 04, 2025 Subjective Patient reports ongoing significant nausea. She has been having significant nausea for 5 weeks since starting Zepbound. No further diarrhea today and had a formed bowel movement. Has some mild cramping abdominal pain occasionally. She has been tolerating clear liquids and is amenable to increasing to full liquids. Physical Exam Constitutional: WD/WN, vitals as above Respiratory: normal respiratory effort, lungs clear to auscultation Cardiovascular: RRR, no murmur, no edema Gastrointestinal (Abdomen): normal bowel sounds, soft, nontender, no hepatosplenomegaly Psychiatric: A+Ox3, euthymic affect Results & Data Results & Data Vital Signs (Past 12 Hours) Vital Signs Temp Pulse Resp BP Pulse Ox O2 Del Method 04/05/25 15:02 36.5 C 99 H 16 100/68 100 Room Air 04/05/25 07:22 36.9 C 65 18 112/75 98 Room Air Laboratory Results CBC, BMP, magnesium reviewed PG Care Time/CCT Total # of Minutes Spent Total Time Spent with Patient: Total time spent is greater than 50% in coordination of care (as documented) at patient's floor/unit and/or counseling patient: Coding Level of Care Code 05323 SUB INP/OBS CARE 2/35MIN Diagnoses Gastroenteritis K52.9 Enterovirus infection B34.1 Hypokalemia E87.6
[2025-04-05] MEDS: CALCIUM CARBONATE 500 MG CHEWABLE TAB PO PRN (20:02)
[2025-04-05] MEDS: ENOXAPARIN INJ 40 MG/0.4 ML SYR SQ SCH (21:35)
[2025-04-06 06:52] LABS: Hematocrit (blood only) 38.2 % (37.0-47.0); Hemoglobin 13.5 g/dL (12.0-16.0); Mean Corpuscular Hemoglobin 30.8 pg (25.0-34.0); Mean Corpuscular Volume 87.2 fL (80.0-100.0); Platelet Count 226 K/uL (130-400); RDW Standard Deviation 38.2 fL (36.4-46.3); Red Blood Count 4.38 M/uL (4.20-5.40); White Blood Count 5.10 K/ul (4.8-10.8)
[2025-04-06 07:16] LABS: Anion Gap 6.0 (3-11); Blood Urea Nitrogen 3.0 mg/dl (6-23); Calcium 8.3 mg/dl (8.6-10.3); Carbon Dioxide 22.0 mmol/L (21-32); Chloride 110.0 mmol/L (98-107); Creatinine Clr Calc Pharmacy 169.5 ml/min; Glucose 89.0 mg/dl (70-99(Fasting)); Magnesium 1.9 mg/dl (1.7-2.4); Potassium 3.2 mmol/L (3.5-5.1); Sodium 138.0 mmol/L (136-145)
[2025-04-06 07:23] VITALS: BP 125/81; PULSE 80; RESP 21; TEMP 98.2; O2SAT 98
[2025-04-06 08:09] LABS: Immature Granulocytes # (auto) 0.01 K/uL (0.01-0.20); Immature Granulocytes % (auto) 0.2 %
[2025-04-06] MEDS: POTASSIUM CHLORIDE CRTAB 20 MEQ TABCR PO STA (10:39)
--- NOTE | 2025-04-06 14:33 | Discharge Summary ---
Discharge Summary Date of Service April 06, 2025 Principal Dx & Hospital Course #1 = Principal Diagnosis (1) Gastroenteritis: (2) Enterovirus infection: (3) Hypokalemia: Plan This is a 34 year old female with a PMH of ADHD, obesity, binge eating disorder, anxiety disorder- coming in with nausea/vomiting/diarrhea and found to have enterovirus/rhinovirus on a nasal BioFire. Stool PCR negative. She was already with chronic nausea for the last 5 weeks since starting Zepbound as an outpatient which is compounding her viral gastroenteritis. #Viral Gastroenteritis/enterovirus-tested positive for +enterovirus on 04/02, here with intractable nausea. Vomiting has resolved. CT abdomen/pelvis negative. Now feeling much improved and is tolerating regular diet at the time of discharge. She was treated with IV fluids, IV Zofran. - DC to home on low fiber diet and slowly advance to regular as tolerated and small amounts -Advised her to hold her home Zepbound due on 04/06-delay for 1 week until 04/13 #Hypokalemia mildly low at 3.3, secondary to poor p.o. intake. Magnesium low normal at 1.8. Both were replaced and potassium remained mildly low due to poor p.o. intake but was replaced again on the day of discharge - Should improve as her diet intake improves after discharge #ADHD - Continue home Strattera #Anxiety disorder/binge eating disorder - Continue home venlafaxine - Recommend holding Zepbound for 1 more week - If wants an alternative weight loss medication due to chronic nausea, recommend Topamax as she also has a headache disorder #Obesity BMI 35.3-has lost 23 pounds in the last 5 weeks on Zepbound but has severe daily nausea - Consider Topamax as an outpatient #Headache-has a history of headaches which have improved since her hysterectomy. Currently has a headache but may be from missing 4 days of her Effexor and Strattera as an outpatient which she has now restarted - Was given Tylenol as needed DVT prophylaxis-Lovenox SQ Disposition-stable for discharge to home, much improved Notes For Next Care Provider Medication Changes From Visit Holding Zepbound x 1 week Admission HPI Per Admitting Provider This is a 34 year old female with a PMH of ADHD, mood disorder - coming in with nausea/vomiting/diarrhea. States she's had this for a few days. on 04/02; tested positive for enterovirus. Now she cannot keep anything down. On arrival here, labs drawn and suggestive of hypokalemia; elevated Hgb likely secondary to dehyd ration. Gave fluids, IV Zofran in the ER and attempted to feed her, but she still could not keep anything down. No diarrhea in the ER, but patient states she was having this at home. Discharge Exam Constitutional WD/WN, vitals as above Respiratory normal respiratory effort, lungs clear to auscultation Cardiovascular RRR, no murmur, no edema Gastrointestinal (Abdomen) normal bowel sounds, soft, nontender, no hepatosplenomegaly Psychiatric A+Ox3, euthymic affect Discharge Plan Discharge Items Patient Disposition: Home - Self-Care Reason For Visit: GASTROENTERITIS Discharge Diagnosis: Gastroenteritis due to enterovirus Hypokalemia Condition on Discharge: Good Activity: Resume your previous activity Non-emergency contact: Primary Care Provider Call non-emergency contact if: you have any medication questions and your symptoms worsen Follow-up/Referrals: Staci Parikh MD [Primary Care Provider] - (Follow-up within 1-2 weeks) Diet: Low Fiber Diet Comment: Start with small amounts of a low fiber diet and then advance to regular Addtl Attending Provider Instructions: You are admitted with a viral gastroenteritis caused by enterovirus. Fortunately, you are now much improved. Please remain off of your Zepbound perhaps for another week until you are fully recovered. It was a pleasure taking care of you! If you have any questions about your care before your hospital follow-up visit w ith your primary care provider, please call [phone] and ask to be transferred to the [facility] Medicine office. Sincerely, Lavern Edwards M.D. Pending Studies at Discharge: No Stand-Alone Forms: [facility], Smoking Cessation Medications and DC Order Prescriptions: Continued venlafaxine [Effexor XR] 75 mg capsule,extended release 24hr 75 mg PO QAM Qty: 90 3RF ondansetron HCl 4 mg tablet 4 mg PO DAILY PRN (Reason: nausea and vomiting) Qty: 30 0RF atomoxetine 80 mg capsule 80 mg PO DAILY Qty: 90 1RF fluticasone propionate [Flonase Allergy Relief] 50 mcg/actuation spray,suspension 1 spray intranasal BID PRN (Reason: Allergies) Rx Instructions: administer into each nostril Held Zepbound 2.5 mg/0.5 mL pen injector 2.5 mg SUBCUT WK Hold Instructions: Resume on 04/13/25. Discharge Orders: Discharge Order (Routine); Ordered 04/06/25 Ordered By: Lavern Edwards Admission Data Admit Date/Time: 04/04/25 17:27 Attending Provider: Lavern Edwards Admit Provider: Phoenix Almendarez Primary Care Provider: Staci Parikh Other Providers: Phoenix Almendarez Hospital Stay Data Consultations 04/04/25 17:06 ED Decision to Admit Stat Diagnostic Imagining Performed 04/04/25 14:54 CT Abd and Pelvis [CT abd pelvis IV con only] Stat Pending Results Patient Have Any Pending Studies at Discharge: No Discharge Instructions Given to Patient (Per Discharging Provider) You are admitted with a viral gastroenteritis caused by enterovirus. Fortunately, you are now much improved. Please remain off of your Zepbound perhaps for another week until you are fully recovered. It was a pleasure taking care of you! If you have any questions about your care before your hospital follow-up visit with your primary care provider, please call [phone] and ask to be transferred to the [facility] Medicine office. Sincerely, Lavern Edwards M.D. Total Time Total Time Spent Total Time Spent (In Minutes): 35 minutes Total Time Includes: Examination of the Patient, Discharge Planning and Medication Reconciliation Coding Level of Care Code 78539 INP/OBS DISCH >30 MIN Diagnoses Gastroenteritis K52.9 Enterovirus infection B34.1 Hypokalemia E87.6
== END 2025-04-06 15:29 | disposition home or self-care (01) ==
LOC: 3W 12:12 → ED 12:12 → SUATTDRO 17:27 → 3W 20:01